=== PATIENT | male | born 1970 | race Caucasian/White ===

== ENCOUNTER 2016-08-24 03:47 | Emergency (ER) | payer MEDICARE, MEDICAID ==
[~2016-08-24 03:47] MED LIST: /MELO7TA PO; FLEX10TA2 PO; FURO40TA2 PO; LISI10TA4 PO; LORA10TA2 PO; LYRI225C PO; LYRI300C PO; LYRI75CA PO; NEUR300C PO; OMEP40CA2 PO; ROBA750T4 PO; SKEL-29 PO; SOMA350T PO; ULTR50TA PO; VICO5TAB PO
== END 2016-08-24 07:07 | disposition left against medical advice (07) ==
LOC: M ED 03:47
DX: H92.09 Otalgia, unspecified ear (principal); Z53.20 Procedure and treatment not carried out because of patient's decision for unspecified reasons

== ENCOUNTER 2016-09-28 21:39 | Emergency (ER) | payer MEDICARE, MEDICAID ==
[~2016-09-28] VITALS: Ht 180.3 cm; Wt 168.3 kg
[2016-09-28] MEDS ORDERED: LOVE1INJ SC (21:58)
[2016-09-28] MEDS ORDERED: ATEN25TA PO (21:58)
[2016-09-28] MEDS ORDERED: SPIR25TA2 PO (21:58)
[2016-09-28] MEDS ORDERED: FAMO1TAB25 PO (21:58)
[2016-09-28] MEDS ORDERED: ATOR1TAB18 PO (21:58)
[2016-09-28] MEDS ORDERED: MULTCAP11 PO (21:58)
[2016-09-28] MEDS ORDERED: B121000T PO (21:58)
[2016-09-28] MEDS ORDERED: dexameTHASONE 20 MG/5 ML VIAL (J1100) IM ONE (22:30)
[2016-09-28 23:06] VITALS: BP 127/68
== END 2016-09-28 23:14 | disposition home or self-care (01) ==
LOC: M ED 22:41
DX: K13.79 Other lesions of oral mucosa (principal); Z98.890 Other specified postprocedural states; Z88.0 Allergy status to penicillin; Z91.09 Other allergy status, other than to drugs and biological substances; Z79.899 Other long term (current) drug therapy
CPT/HCPCS: 36415; 85025; 99281; J1100

== ENCOUNTER → 2016-10-02 | Outpatient (REF) | payer MEDICARE, MEDICAID ==
[~2016-10-02] MED LIST changes: +ATEN25TA PO; +ATOR1TAB18 PO; +B121000T PO; +FAMO1TAB25 PO; +LOVE1INJ SC; +MULTCAP11 PO; +SPIR25TA2 PO
[2016-10-02 16:49] LABS: ANION GAP 8 MEQ/L (8-16); BLOOD UREA NITROGEN 16 MG/DL (7-18); CALCIUM LEVEL 8.8 MG/DL (8.5-10.1); CARBON DIOXIDE LEVEL 27 MEQ/L (21-32); CHLORIDE LEVEL 103 MEQ/L (98-107); CREATININE FOR GFR 1.15 MG/DL (0.70-1.30); GLOMERULAR FILTRATION RATE > 60.0 (>60); GLUCOSE, FASTING 100 MG/DL (70-105); POTASSIUM SERUM 4.2 MEQ/L (3.5-5.1); SODIUM LEVEL 138 MEQ/L (136-145)
== END ==
LOC: M LABDRAW1 15:45
PROVIDERS: ATTEND Family Medicine
DX: E11.9 Type 2 diabetes mellitus without complications (principal)

== ENCOUNTER → 2016-11-17 | Outpatient (REF) | payer MEDICARE, MEDICAID ==
[2016-11-17 12:29] LABS: ALBUMIN 3.7 GM/DL (3.2-5.2); ALBUMIN/GLOBULIN RATIO 1.28 (1.00-1.93); ALKALINE PHOSPHATASE 79 U/L (45-117); ALT/SGPT 67 U/L (12-78); ANION GAP 8 MEQ/L (8-16); AST/SGOT 29 U/L (15-37); BILIRUBIN,DIRECT 0.1 MG/DL (0.0-0.2); BILIRUBIN,TOTAL 0.4 MG/DL (0.2-1.0); BLOOD UREA NITROGEN 12 MG/DL (7-18); CALCIUM LEVEL 8.8 MG/DL (8.5-10.1); CARBON DIOXIDE LEVEL 28 MEQ/L (21-32); CHLORIDE LEVEL 105 MEQ/L (98-107); CHOLESTEROL LEVEL 80 MG/DL (<200); CREATININE FOR GFR 1.04 MG/DL (0.70-1.30); GLOMERULAR FILTRATION RATE > 60.0 (>60); GLUCOSE, FASTING 125 MG/DL (70-105); SODIUM LEVEL 141 MEQ/L (136-145); TOTAL PROTEIN 6.6 GM/DL (6.4-8.2); TRIGLYCERIDES LEVEL 114 MG/DL (<150)
== END ==
LOC: M LABDRAW1 11:40
PROVIDERS: ATTEND Nurse Practitioner Family
DX: I25.118 Atherosclerotic heart disease of native coronary artery with other forms of angina pectoris (principal); I10 Essential (primary) hypertension

== ENCOUNTER → 2017-01-02 | Outpatient (REF) | payer MEDICARE, MEDICAID ==
[~2017-01-02] MED LIST changes: -ATOR1TAB18 PO; +ATOR80TA59 PO; +KEFL500C17 PO; +NITR0.4S14; -SKEL-29 PO; +SKEL800T97 PO
[2017-01-20 06:28] LABS: FIBROSPECT1 SEE SEPARATE REPORT
== END ==
LOC: M LABDRAW1 12:02
PROVIDERS: ATTEND Internal Medicine Gastroenterology
DX: K75.81 Nonalcoholic steatohepatitis (NASH) (principal)

== ENCOUNTER → 2017-02-17 | Outpatient (REF) | payer MEDICARE, MEDICAID ==
[2017-02-17 15:15] LABS: BASO % 0.4 % (0.0-1.0); EOS # 0.2 K/mm3 (0.0-0.50); EOS % 2.4 % (0.0-3.0); LARGE UNSTAINED CELL # 0.1 K/mm3 (0.0-0.4); LYMPH # 2.2 K/mm3 (1.5-4.5); LYMPH % 31.3 % (24.0-44.0); MEAN CORPUSCULAR HEMOGLOBIN 30.8 pg (27.0-33.0); MEAN CORPUSCULAR HGB CONC 32.9 g/dl (32.0-36.5); MEAN CORPUSCULAR VOLUME 93.8 fl (80.0-96.0); MONO # 0.4 K/mm3 (0.0-0.8); MONO % 6.3 % (0.0-5.0); NEUTROPHILS # 3.8 K/mm3 (1.8-7.7); NEUTROPHILS % 57.5 % (36.0-66.0); PLATELET COUNT, AUTOMATED 210 k/mm3 (150-450); RED CELL DISTRIBUTION WIDTH 13.2 % (11.5-14.5); WHITE BLOOD COUNT 6.5 K/mm3 (4.0-10.0)
[2017-02-17 15:18] LABS: ALBUMIN 3.7 GM/DL (3.2-5.2); ALBUMIN/GLOBULIN RATIO 1.32 (1.00-1.93); ALKALINE PHOSPHATASE 71 U/L (45-117); ALT/SGPT 49 U/L (12-78); ANION GAP 8 MEQ/L (8-16); AST/SGOT 29 U/L (15-37); BILIRUBIN,TOTAL 0.4 MG/DL (0.2-1.0); BLOOD UREA NITROGEN 14 MG/DL (7-18); CALCIUM LEVEL 8.7 MG/DL (8.5-10.1); CARBON DIOXIDE LEVEL 27 MEQ/L (21-32); CHLORIDE LEVEL 107 MEQ/L (98-107); CREATININE FOR GFR 1.04 MG/DL (0.70-1.30); FERRITIN 37 NG/ML (26-388); GLOMERULAR FILTRATION RATE > 60.0 (>60); GLUCOSE, FASTING 91 MG/DL (70-105); MAGNESIUM LEVEL 2.3 MG/DL (1.8-2.4); PHOSPHORUS LEVEL 3.8 MG/DL (2.5-4.9); POTASSIUM SERUM 4.4 MEQ/L (3.5-5.1); SODIUM LEVEL 142 MEQ/L (136-145); TOTAL PROTEIN 6.5 GM/DL (6.4-8.2)
[2017-02-17 15:21] LABS: VITAMIN B12 LEVEL 585 PG/ML (247-911)
[2017-02-20 12:02] LABS: PRETREATED FOLATE FOR RBCFOL 12.9 NG/ML
== END ==
LOC: M LABDRAW1 11:56
PROVIDERS: ATTEND Surgery
DX: K91.2 Postsurgical malabsorption, not elsewhere classified (principal); Z98.84 Bariatric surgery status

== ENCOUNTER → 2017-02-27 | Outpatient (REF) | payer MEDICARE ==
[2017-02-27 13:12] LABS: INR 1.02
== END ==
LOC: M LABDRAW1 10:10
PROVIDERS: ATTEND Physical Medicine & Rehabilitation
DX: Z01.818 Encounter for other preprocedural examination (principal); I10 Essential (primary) hypertension

== ENCOUNTER → 2017-02-27 | Outpatient (REF) | payer MEDICARE ==
[2017-02-27 13:45] LABS: ALBUMIN 3.5 GM/DL (3.2-5.2); ANION GAP 8 MEQ/L (8-16); BLOOD UREA NITROGEN 13 MG/DL (7-18); CALCIUM LEVEL 8.7 MG/DL (8.5-10.1); CARBON DIOXIDE LEVEL 29 MEQ/L (21-32); CHLORIDE LEVEL 105 MEQ/L (98-107); CREATININE FOR GFR 0.98 MG/DL (0.70-1.30); GLOMERULAR FILTRATION RATE > 60.0 (>60); GLUCOSE, FASTING 70 MG/DL (70-105); POTASSIUM SERUM 4.6 MEQ/L (3.5-5.1); SODIUM LEVEL 142 MEQ/L (136-145)
== END ==
LOC: M LABDRAW1 13:08
PROVIDERS: ATTEND Nurse Practitioner Family
DX: Z01.818 Encounter for other preprocedural examination (principal); I10 Essential (primary) hypertension; Z98.84 Bariatric surgery status

== ENCOUNTER 2017-03-26 16:43 | Emergency (ER) | payer MEDICARE, MEDICAID ==
[~2017-03-26] VITALS: Ht 180.3 cm; Wt 140.9 kg
[~2017-03-26 16:43] MED LIST changes: -KEFL500C17 PO; -NITR0.4S14
[2017-03-26] MEDS ORDERED: NITR0.4S14 (16:52)
[2017-03-26] MEDS ORDERED: LIDOCAINE 2% MDV 20 ML VIAL As Ordered ONE (19:18)
[2017-03-26] MEDS ORDERED: LIDOCAINE 2% MDV 20 ML VIAL SC ONE (19:30)
[2017-03-26] MEDS ORDERED: ADACEL/BOOSTRIX VACCINE (DIPHTH/PERTUSS/ACELL/TETANUS)0.5ML SYR (90715) IM ONE (19:45)
[2017-03-26] MEDS ORDERED: KEFL500C17 PO (19:49)
[2017-03-26 19:57] VITALS: BP 103/64
== END 2017-03-26 20:13 | disposition home or self-care (01) ==
LOC: M ED 16:43
DX: S61.210A Laceration without foreign body of right index finger without damage to nail, initial encounter (principal); S66.120A Laceration of flexor muscle, fascia and tendon of right index finger at wrist and hand level, initial encounter; X58.XXXA Exposure to other specified factors, initial encounter; Y92.009 Unspecified place in unspecified non-institutional (private) residence as the place of occurrence of the external cause; Y93.89 Activity, other specified; Y99.8 Other external cause status; Z88.0 Allergy status to penicillin; Z91.048 Other nonmedicinal substance allergy status; Z79.899 Other long term (current) drug therapy

== ENCOUNTER → 2017-07-09 | Outpatient (CLI) | payer MEDICARE | LOC: M RAD 12:35 | DX: J34.2 Deviated nasal septum (principal) | CPT/HCPCS: 70486 ==

== ENCOUNTER → 2017-07-16 | Outpatient (REF) | payer MEDICARE | LOC: M LABDRAW1 15:37 | DX: M51.37 Other intervertebral disc degeneration, lumbosacral region (principal) | CPT/HCPCS: 80307 ==

== ENCOUNTER → 2017-09-11 | Outpatient (REF) | payer MEDICARE ==
[2017-09-11 12:55] LABS: BASO % 0.3 % (0.0-1.0); EOS # 0.1 10^3/uL (0.0-0.50); EOS % 1.8 % (0.0-3.0); HEMATOCRIT 46.1 % (42.0-52.0); HEMOGLOBIN 15.4 g/dl (14.0-18.0); IMMATURE GRANULOCYTE % 0.3 % (0-3.0); LYMPH # 2.5 10^3/uL (1.5-4.5); LYMPH % 31.4 % (24.0-44.0); MEAN CORPUSCULAR HEMOGLOBIN 30.7 pg (27.0-33.0); MEAN CORPUSCULAR HGB CONC 33.4 g/dl (32.0-36.5); MONO # 0.5 10^3/uL (0.0-0.8); MONO % 6.7 % (0.0-5.0); NEUTROPHILS # 4.7 10^3/uL (1.8-7.7); NEUTROPHILS % 59.5 % (36.0-66.0); PLATELET COUNT, AUTOMATED 228 10^3/uL (150-450); RED BLOOD COUNT 5.01 10^6/uL (4.30-6.10); RED CELL DISTRIBUTION WIDTH 12.8 % (11.5-14.5); WHITE BLOOD COUNT 7.9 10^3/uL (4.0-10.0)
[2017-09-11 13:47] LABS: ALBUMIN 3.8 GM/DL (3.2-5.2); ALBUMIN/GLOBULIN RATIO 1.36 (1.00-1.93); ALKALINE PHOSPHATASE 73 U/L (45-117); ALT/SGPT 43 U/L (12-78); ANION GAP 8 MEQ/L (8-16); AST/SGOT 21 U/L (7-37); BILIRUBIN,TOTAL 0.3 MG/DL (0.2-1.0); BLOOD UREA NITROGEN 15 MG/DL (7-18); CALCIUM LEVEL 8.8 MG/DL (8.5-10.1); CARBON DIOXIDE LEVEL 29 MEQ/L (21-32); CHLORIDE LEVEL 106 MEQ/L (98-107); CREATININE FOR GFR 1.03 MG/DL (0.70-1.30); GLOMERULAR FILTRATION RATE > 60.0 (>60); GLUCOSE, FASTING 88 MG/DL (70-100); POTASSIUM SERUM 4.6 MEQ/L (3.5-5.1); SODIUM LEVEL 143 MEQ/L (136-145); TOTAL PROTEIN 6.6 GM/DL (6.4-8.2)
== END ==
LOC: M LABDRAW1 11:27
DX: Z01.812 Encounter for preprocedural laboratory examination (principal)

== ENCOUNTER → 2017-09-11 | Outpatient (REF) | payer MEDICARE ==
[2017-09-11 12:50] LABS: BASO % 0.4 % (0.0-1.0); EOS # 0.2 10^3/uL (0.0-0.50); EOS % 2.2 % (0.0-3.0); HEMATOCRIT 45.8 % (42.0-52.0); HEMOGLOBIN 15.4 g/dl (14.0-18.0); IMMATURE GRANULOCYTE % 0.3 % (0-3.0); LYMPH # 2.3 10^3/uL (1.5-4.5); LYMPH % 29.8 % (24.0-44.0); MEAN CORPUSCULAR HEMOGLOBIN 30.9 pg (27.0-33.0); MEAN CORPUSCULAR HGB CONC 33.6 g/dl (32.0-36.5); MONO # 0.5 10^3/uL (0.0-0.8); MONO % 6.5 % (0.0-5.0); NEUTROPHILS # 4.8 10^3/uL (1.8-7.7); NEUTROPHILS % 60.8 % (36.0-66.0); PLATELET COUNT, AUTOMATED 230 10^3/uL (150-450); RED BLOOD COUNT 4.98 10^6/uL (4.30-6.10); RED CELL DISTRIBUTION WIDTH 12.9 % (11.5-14.5); WHITE BLOOD COUNT 7.8 10^3/uL (4.0-10.0)
[2017-09-11 12:52] LABS: HEMATOCRIT 45.8 % (42.0-52.0)
[2017-09-11 13:33] LABS: TOTAL 25(OH) VITAMIN D 40.5 NG/ML (30.0-100.0)
[2017-09-11 13:34] LABS: ESTIMATED AVERAGE GLUCOSE 120 MG/DL (60-110); HEMOGLOBIN A1c 5.8 %; VITAMIN B12 LEVEL 606 PG/ML (247-911)
[2017-09-11 13:48] LABS: ALBUMIN 3.7 GM/DL (3.2-5.2); ALBUMIN/GLOBULIN RATIO 1.23 (1.00-1.93); ALKALINE PHOSPHATASE 69 U/L (45-117); ALT/SGPT 43 U/L (12-78); ANION GAP 7 MEQ/L (8-16); AST/SGOT 21 U/L (7-37); BILIRUBIN,TOTAL 0.3 MG/DL (0.2-1.0); BLOOD UREA NITROGEN 15 MG/DL (7-18); CALCIUM LEVEL 8.8 MG/DL (8.5-10.1); CARBON DIOXIDE LEVEL 29 MEQ/L (21-32); CHLORIDE LEVEL 106 MEQ/L (98-107); CREATININE FOR GFR 0.99 MG/DL (0.70-1.30); FERRITIN 42 NG/ML (26-388); GLOMERULAR FILTRATION RATE > 60.0 (>60); GLUCOSE, FASTING 83 MG/DL (70-100); IRON (FE) 59 UG/DL (65-175); MAGNESIUM LEVEL 2.1 MG/DL (1.8-2.4); PERCENT SATURATION 19.4 % (19.7-50.0); PHOSPHORUS LEVEL 3.8 MG/DL (2.5-4.9); POTASSIUM SERUM 4.5 MEQ/L (3.5-5.1); SODIUM LEVEL 142 MEQ/L (136-145); TOTAL IRON BINDING CAPACITY 304 UG/DL (250-450); TOTAL PROTEIN 6.7 GM/DL (6.4-8.2)
[2017-09-15 10:54] LABS: PRETREATED FOLATE FOR RBCFOL 11.3 NG/ML; RBC FOLATE 518.1 NG/ML (280-791)
== END ==
LOC: M LABDRAW1 11:28
DX: K91.2 Postsurgical malabsorption, not elsewhere classified (principal); E55.9 Vitamin D deficiency, unspecified; Z98.84 Bariatric surgery status; Z01.812 Encounter for preprocedural laboratory examination
CPT/HCPCS: 83550

== ENCOUNTER → 2017-09-16 | Outpatient (REF) | payer MEDICARE ==
[2017-09-16 11:52] LABS: ALBUMIN 3.7 GM/DL (3.2-5.2); ANION GAP 6 MEQ/L (8-16); BLOOD UREA NITROGEN 18 MG/DL (7-18); CALCIUM LEVEL 8.7 MG/DL (8.5-10.1); CARBON DIOXIDE LEVEL 31 MEQ/L (21-32); CHLORIDE LEVEL 105 MEQ/L (98-107); CREATININE FOR GFR 1.07 MG/DL (0.70-1.30); GLOMERULAR FILTRATION RATE > 60.0 (>60); GLUCOSE, FASTING 89 MG/DL (70-100); PHOSPHORUS LEVEL 3.4 MG/DL (2.5-4.9); POTASSIUM SERUM 4.4 MEQ/L (3.5-5.1); SODIUM LEVEL 142 MEQ/L (136-145)
== END ==
LOC: M LABDRAW1 11:17
DX: I10 Essential (primary) hypertension (principal)
CPT/HCPCS: 80069

== ENCOUNTER 2017-09-25 08:07 | Day surgery (SDC) | payer MEDICARE ==
[2017-09-25] MEDS ORDERED: MIDAZOLAM INJ 2 MG/2 ML VIAL (J2250) As Ordered (10:13)
[2017-09-25] MEDS ORDERED: SUCCINYLCHOLINE 100 MG/5 ML SYRINGE (J0330) As Ordered (10:13)
[2017-09-25] MEDS ORDERED: PROPOFOL 200 MG/20 ML VIAL As Ordered (10:13)
[2017-09-25] MEDS ORDERED: LIDOCAINE 2% INJ 100 MG/5 ML SDV (FOR ANES.) As Ordered (10:13)
[2017-09-25] MEDS ORDERED: ROCURONIUM BROMIDE 50 MG/5 ML VIAL As Ordered (10:13)
[2017-09-25] MEDS ORDERED: fentaNYL 100 MCG/2 ML INJECTION (J3010) As Ordered ×2 (10:13→10:25)
[2017-09-25] MEDS: METHYLENE BLUE 0.5% (5MG/ML) 10 ML AMP (PROVAYBLUE)(Q9968 PER 1MG) As Ordered (10:16)
[2017-09-25] MEDS: SODIUM CHLORIDE 0.9% NASAL GEL 15MG (AYR) As Ordered (10:16)
[2017-09-25] MEDS: LIDOCAINE W/EPINEPHRINE 1% 20ML VIAL As Ordered (10:16)
[2017-09-25] MEDS: OXYMETAZOLINE NASAL SPRAY (AFRIN) As Ordered (10:16)
[2017-09-25] MEDS ORDERED: dexameTHASONE 4 MG/ML 1ML VIAL (J1100) As Ordered (10:18)
[2017-09-25] MEDS ORDERED: ePHEDrine SULFATE 25 MG/5 ML(5MG/ML) SYRINGE As Ordered (10:25)
[2017-09-25] MEDS ORDERED: ONDANSETRON 4MG/2ML VIAL (J2405) As Ordered (10:40)
[2017-09-25] MEDS ORDERED: METOCLOPRAMIDE INJ 10MG/2ML VIAL (J2765) IV (11:15)
[2017-09-25] MEDS ORDERED: ONDANSETRON 4MG/2ML VIAL (J2405) IV (11:15)
[2017-09-25] MEDS ORDERED: ACETAMINOPH W/CODEINE #3 TAB UD PO ×2 (11:15)
[2017-09-25] MEDS ORDERED: PERCOCET 5MG/325MG TAB PO (11:15)
[2017-09-25] MEDS ORDERED: LR 1,000 ML IV (11:15)
[2017-09-25] MEDS ORDERED: fentaNYL 100 MCG/2 ML INJECTION (J3010) IV (11:15)
== END 2017-09-25 12:33 | disposition home or self-care (01) ==
LOC: M SDC 08:07
DX: J34.2 Deviated nasal septum (principal); J34.3 Hypertrophy of nasal turbinates; J34.89 Other specified disorders of nose and nasal sinuses; I10 Essential (primary) hypertension; E78.00 Pure hypercholesterolemia, unspecified; G47.33 Obstructive sleep apnea (adult) (pediatric); I25.10 Atherosclerotic heart disease of native coronary artery without angina pectoris; M54.5 Low back pain; K21.9 Gastro-esophageal reflux disease without esophagitis; T88.59XD Other complications of anesthesia, subsequent encounter; R06.83 Snoring; E66.01 Morbid (severe) obesity due to excess calories; Z68.43 Body mass index [BMI] 50.0-59.9, adult; Z88.0 Allergy status to penicillin; Z91.048 Other nonmedicinal substance allergy status; Z79.899 Other long term (current) drug therapy; Z79.82 Long term (current) use of aspirin; Z98.84 Bariatric surgery status; Z95.5 Presence of coronary angioplasty implant and graft
CPT/HCPCS: 30520

== ENCOUNTER → 2018-06-13 | Outpatient (CLI) | payer MEDICARE | LOC: M SLEEP 20:00 | DX: G47.33 Obstructive sleep apnea (adult) (pediatric) (principal) | CPT/HCPCS: 95811 ==

== ENCOUNTER → 2018-08-11 | Outpatient (REF) | payer OTHER ==
[~2018-08-11] MED LIST changes: +AMIT25TA PO; +ASPI1TAB PO; +BLUE EMU TOP; +CALC1TAB26 PO; +DULO1CAP3 PO; +KEFL500C17 PO; +NEUR600T PO; +NITR0.4S14; +PREG100CA PO; +ROBA500T PO; +SPIR-10 PO; -SPIR25TA2 PO; +TIZA4CAP PO; +TRAM50TA2 PO
[2018-08-11 12:51] LABS: HEMOGLOBIN A1c 6.2 %
[2018-08-11 13:07] LABS: MAU/CREAT RATIO 36.7 MCG/MG (0.0-30.0)
== END ==
LOC: M LABDRAW1 10:14
PROVIDERS: ATTEND Family Medicine
DX: E11.9 Type 2 diabetes mellitus without complications (principal)

== ENCOUNTER → 2018-08-11 | Outpatient (REF) | payer OTHER ==
[2018-08-11 12:33] LABS: BASO % 0.5 % (0.0-1.0); EOS # 0.2 10^3/uL (0.0-0.50); EOS % 2.8 % (0.0-3.0); HEMATOCRIT 47.7 % (42.0-52.0); LYMPH # 2.5 10^3/uL (1.5-4.5); LYMPH % 30.4 % (24.0-44.0); MEAN CORPUSCULAR HEMOGLOBIN 31.2 pg (27.0-33.0); MEAN CORPUSCULAR HGB CONC 33.5 g/dl (32.0-36.5); MONO # 0.5 10^3/uL (0.0-0.8); MONO % 5.8 % (0.0-5.0); NEUTROPHILS # 4.9 10^3/uL (1.8-7.7); NEUTROPHILS % 60.1 % (36.0-66.0); PLATELET COUNT, AUTOMATED 267 10^3/uL (150-450); RED BLOOD COUNT 5.13 10^6/uL (4.30-6.10); WHITE BLOOD COUNT 8.1 10^3/uL (4.0-10.0)
[2018-08-11 12:40] LABS: ALBUMIN 4.1 GM/DL (3.2-5.2); ALT/SGPT 153 U/L (12-78); BILIRUBIN,TOTAL 0.3 MG/DL (0.2-1.0); BLOOD UREA NITROGEN 10 MG/DL (7-18); CALCIUM LEVEL 8.9 MG/DL (8.5-10.1); CARBON DIOXIDE LEVEL 29 MEQ/L (21-32); CHLORIDE LEVEL 103 MEQ/L (98-107); CHOLESTEROL LEVEL 109 MG/DL (<200); CHOLESTEROL RISK RATIO 2.369 (<5); CREATININE FOR GFR 1.34 MG/DL (0.70-1.30); GLOMERULAR FILTRATION RATE > 60.0 (>60); GLUCOSE, FASTING 147 MG/DL (70-100); HDL CHOLESTEROL 46 MG/DL (>40); LDL CHOLESTEROL 45 MG/DL (<100); NON-HDL-C 63 MG/DL; POTASSIUM SERUM 4.6 MEQ/L (3.5-5.1); SODIUM LEVEL 138 MEQ/L (136-145); TOTAL PROTEIN 7.1 GM/DL (6.4-8.2); TRIGLYCERIDES LEVEL 89 MG/DL (<150)
== END ==
LOC: M LABDRAW1 10:12
PROVIDERS: ATTEND Physician Assistant
DX: I25.10 Atherosclerotic heart disease of native coronary artery without angina pectoris (principal)

== ENCOUNTER 2018-09-04 01:42 | Emergency (ER) | payer OTHER ==
[~2018-09-04] VITALS: Ht 180.3 cm; Wt 320.0 kg
[2018-09-04 01:42] VITALS: BP 151/85
[~2018-09-04 01:42] MED LIST changes: -AMIT25TA PO; -BLUE EMU TOP; -CALC1TAB26 PO; -DULO1CAP3 PO; -NEUR600T PO; -ROBA500T PO; -TIZA4CAP PO; -TRAM50TA2 PO
[2018-09-04] MEDS ORDERED: DULO1CAP3 PO (02:16)
[2018-09-04] MEDS ORDERED: NEUR600T PO (02:16)
[2018-09-04] MEDS ORDERED: TIZA4CAP PO (02:16)
[2018-09-04] MEDS ORDERED: BLUE EMU TOP (02:16)
[2018-09-04] MEDS ORDERED: TRAM50TA2 PO (02:16)
[2018-09-04] MEDS ORDERED: CALC1TAB26 PO (02:16)
[2018-09-04] MEDS ORDERED: AMIT25TA PO (02:16)
[2018-09-04] MEDS ORDERED: ATOR80TA59 PO (02:16)
[2018-09-04] MEDS ORDERED: METHOCARBAMOL 1,000 MG/10 ML VIAL (J2800) IM ONE (03:45)
[2018-09-04] MEDS ORDERED: ROBA500T PO (04:16)
== END 2018-09-04 04:33 | disposition home or self-care (01) ==
LOC: M ED 01:42
DX: S39.012A Strain of muscle, fascia and tendon of lower back, initial encounter (principal); X50.1XXA Overexertion from prolonged static or awkward postures, initial encounter; Y92.89 Other specified places as the place of occurrence of the external cause; I11.9 Hypertensive heart disease without heart failure; I25.10 Atherosclerotic heart disease of native coronary artery without angina pectoris; E78.5 Hyperlipidemia, unspecified; K21.9 Gastro-esophageal reflux disease without esophagitis; M54.9 Dorsalgia, unspecified; G89.29 Other chronic pain; Z98.84 Bariatric surgery status; Z88.0 Allergy status to penicillin; Z91.048 Other nonmedicinal substance allergy status; Z79.899 Other long term (current) drug therapy; Z79.82 Long term (current) use of aspirin
CPT/HCPCS: 96372; 99282; J2800

== ENCOUNTER 2018-11-06 18:50 | Emergency (ER) | payer OTHER ==
[~2018-11-06] VITALS: Ht 180.3 cm; Wt 154.8 kg
[~2018-11-06 18:50] MED LIST changes: -/MELO7TA PO; +AMIT25TA PO; -ASPI1TAB PO; +ASPI81TA26 PO; +BLUE EMU TOP; +CALC1TAB26 PO; +DULO1CAP3 PO; +MOBI4TAB PO; +NEUR600T PO; +ROBA500T PO; +TIZA4CAP PO; +TRAM50TA2 PO
[2018-11-06] MEDS ORDERED: GABA800T4 PO (18:57)
[2018-11-06] MEDS ORDERED: ADACEL/BOOSTRIX VACCINE (DIPHTH/PERTUSS/ACELL/TETANUS)0.5ML SYR (90715) IM ONE (19:45)
[2018-11-06 20:41] VITALS: BP 132/74
--- NOTE | 2018-11-07 11:52 | REP ---
RIGHT LOWER LEG, AP AND LATERAL: AP and lateral views of the right lower leg are performed. There is no acute fracture or dislocation. No intrinsic osseous pathology is seen. The ankle mortise appears anatomic. There is mild posterior and moderate inferior calcaneal spurring. There is mild dorsal navicular spurring. There is mild spurring anteriorly of the distal end of the tibia. IMPRESSION: No acute fracture or dislocation. Electronically Signed by Robert Hobson MD 11/07/2018 12:29 P
== END 2018-11-06 20:57 | disposition home or self-care (01) ==
LOC: M ED 18:50
DX: S80.811A Abrasion, right lower leg, initial encounter (principal); S80.11XA Contusion of right lower leg, initial encounter; W10.9XXA Fall (on) (from) unspecified stairs and steps, initial encounter; Y92.099 Unspecified place in other non-institutional residence as the place of occurrence of the external cause; Y93.9 Activity, unspecified; Y99.9 Unspecified external cause status; I25.2 Old myocardial infarction; F32.9 Major depressive disorder, single episode, unspecified; Z95.5 Presence of coronary angioplasty implant and graft; Z98.84 Bariatric surgery status; Z79.82 Long term (current) use of aspirin; Z79.899 Other long term (current) drug therapy; Z88.0 Allergy status to penicillin; Z91.89 Other specified personal risk factors, not elsewhere classified

== ENCOUNTER 2021-07-06 14:33 | Emergency (ER) | payer OTHER ==
[~2021-07-06] VITALS: Ht 182.9 cm; Wt 164.2 kg
[~2021-07-06 14:33] MED LIST changes: -AMIT25TA PO; +AMIT25TA17 PO; -DULO1CAP3 PO; +DULO1CAP6 PO; +FAMO10TA50 PO; -FAMO1TAB25 PO; +GABA800T4 PO; +LISI10TA22 PO; -LISI10TA4 PO
[2021-07-06 15:26] LABS: BASO # 0.1 10^3/uL (0.0-0.2); BASO % 0.6 % (0.0-1.0); EOS # 0.2 10^3/uL (0.0-0.5); EOS % 1.9 % (0.0-3.0); HEMATOCRIT 47.8 % (42.0-52.0); HEMOGLOBIN 15.2 g/dl (13.5-17.5); LYMPH # 2.4 10^3/uL (1.5-5.0); LYMPH % 26.9 % (24.0-44.0); MEAN CORPUSCULAR HEMOGLOBIN 29.9 pg (27.0-33.0); MEAN CORPUSCULAR HGB CONC 31.8 g/dl (32.0-36.5); MEAN CORPUSCULAR VOLUME 94.1 fl (80.0-96.0); MONO # 0.9 10^3/uL (0.0-0.8); MONO % 9.4 % (2.0-8.0); NEUTROPHILS # 5.5 10^3/uL (1.5-8.5); NEUTROPHILS % 60.9 % (36.0-66.0); PLATELET COUNT, AUTOMATED 287 10^3/uL (150-450); RED BLOOD COUNT 5.08 10^6/uL (4.30-6.10)
[2021-07-06] MEDS ORDERED: NITROGLYCERIN 0.4 MG SUBL TABLET SL STA (15:39)
[2021-07-06 15:40] LABS: INR 0.95; PROTHROMBIN TIME 13.1 SECONDS (12.7-14.5)
[2021-07-06] MEDS ORDERED: ASPIRIN 81 MG CHEW TABLET PO ONE (15:40)
[2021-07-06 15:48] LABS: ALT/SGPT 43 U/L (12-78); BILIRUBIN,DIRECT 0.1 MG/DL (0.0-0.2); BILIRUBIN,TOTAL 0.1 MG/DL (0.2-1.0); LIPASE 129 U/L (73-393); TOTAL PROTEIN 7.7 GM/DL (6.4-8.2)
[2021-07-06 15:49] LABS: CK-MB VALUE MASS < 1.0 NG/ML (<3.6); CPK CREATINE PHOSPHOKINASE 79 U/L (39-308); MB/CK RELATIVE INDEX 1.27 (< OR =4)
[2021-07-06 16:52] LABS: CK-MB VALUE MASS < 1.0 NG/ML (<3.6); CPK CREATINE PHOSPHOKINASE 77 U/L (39-308)
[2021-07-06 18:26] LABS: BLOOD UREA NITROGEN 14 MG/DL (7-18); CALCIUM LEVEL 9.2 MG/DL (8.5-10.1); CARBON DIOXIDE LEVEL 28 MEQ/L (21-32); CHLORIDE LEVEL 103 MEQ/L (98-107); CREATININE FOR GFR 1.23 MG/DL (0.70-1.30); GLOMERULAR FILTRATION RATE > 60.0 (>56); GLUCOSE, FASTING 135 MG/DL (70-100); NT-PRO BNP 18 PG/ML (<125); POTASSIUM SERUM 4.4 MEQ/L (3.5-5.1); SODIUM LEVEL 138 MEQ/L (136-145)
[2021-07-06 18:30] VITALS: BP 161/89
[2021-07-06 18:39] LABS: CK-MB VALUE MASS < 1.0 NG/ML (<3.6); CPK CREATINE PHOSPHOKINASE 72 U/L (39-308); MB/CK RELATIVE INDEX 1.39 (< OR =4)
== END 2021-07-06 19:09 | disposition home or self-care (01) ==
LOC: M ED 14:33
DX: R07.89 Other chest pain (principal); I45.89 Other specified conduction disorders; I25.10 Atherosclerotic heart disease of native coronary artery without angina pectoris; I25.2 Old myocardial infarction; I10 Essential (primary) hypertension; E78.5 Hyperlipidemia, unspecified; M54.50 Low back pain, unspecified; Z95.5 Presence of coronary angioplasty implant and graft; Z98.84 Bariatric surgery status; Z82.49 Family history of ischemic heart disease and other diseases of the circulatory system; Z79.82 Long term (current) use of aspirin; Z79.899 Other long term (current) drug therapy; Z88.0 Allergy status to penicillin; Z91.89 Other specified personal risk factors, not elsewhere classified

== ENCOUNTER 2022-05-14 18:20 | Emergency (ER) | payer OTHER ==
[~2022-05-14] VITALS: Ht 180.3 cm; Wt 159.1 kg
[2022-05-14] MEDS ORDERED: CLOP75TA2 (18:35)
[2022-05-14] MEDS ORDERED: DULO30CA9 PO (18:35)
[2022-05-14] MEDS ORDERED: PERCOCET 5MG/325MG TAB PO ONE (22:25)
[2022-05-14] MEDS ORDERED: OXYCODONE/APAP 5MG/325MG(HOME DOSE PACK) PO ONE (23:50)
[2022-05-15 00:05] VITALS: BP 123/78
== END 2022-05-15 00:07 | disposition home or self-care (01) ==
LOC: M ED 18:20
DX: S73.102A Unspecified sprain of left hip, initial encounter (principal); W01.10XA Fall on same level from slipping, tripping and stumbling with subsequent striking against unspecified object, initial encounter; Y92.099 Unspecified place in other non-institutional residence as the place of occurrence of the external cause; I25.2 Old myocardial infarction; I10 Essential (primary) hypertension; E78.5 Hyperlipidemia, unspecified; K21.9 Gastro-esophageal reflux disease without esophagitis; F32.9 Major depressive disorder, single episode, unspecified; M54.9 Dorsalgia, unspecified; G47.33 Obstructive sleep apnea (adult) (pediatric); Z98.84 Bariatric surgery status; Z79.82 Long term (current) use of aspirin; Z79.899 Other long term (current) drug therapy; Z88.0 Allergy status to penicillin; Z91.89 Other specified personal risk factors, not elsewhere classified

== ENCOUNTER → 2022-06-06 | Outpatient (CLI) | payer OTHER ==
[~2022-06-06] MED LIST changes: +BUPIVACAINE HCL 0.5% 10ML VIAL ONE; +CLOP75TA2; +DOXY-444 PO; +DULO30CA9 PO; +ISOVUE-300 61% 50ML VIAL ONE; +LIDOCAINE 1% MDV 20ML VIAL ONE; +methylPREDNISolone 80MG/ML SUSP 1ML VIAL ONE
== END ==
LOC: M PLAIMG 14:48
PROVIDERS: ATTEND Orthopaedic Surgery Adult Reconstructive Orthopaedic Surgery
DX: M25.552 Pain in left hip (principal)
CPT/HCPCS: 20610; 76000; J1040; Q9967

== ENCOUNTER 2022-06-20 09:20 | Emergency (ER) | payer OTHER ==
[~2022-06-20] VITALS: Ht 180.3 cm; Wt 154.6 kg
[~2022-06-20 09:20] MED LIST changes: -BUPIVACAINE HCL 0.5% 10ML VIAL ONE; -DOXY-444 PO; -ISOVUE-300 61% 50ML VIAL ONE; -LIDOCAINE 1% MDV 20ML VIAL ONE; -methylPREDNISolone 80MG/ML SUSP 1ML VIAL ONE
[2022-06-20] MEDS ORDERED: ONDANSETRON 4MG 2ML VIAL IV ONE (09:30)
[2022-06-20] MEDS ORDERED: SODIUM CHLORIDE NASAL 0.65% SPRAY BTL (OCEAN) STA (10:08)
[2022-06-20] MEDS ORDERED: OXYMETAZOLINE 0.05% NASAL SPRAY (AFRIN) ONE (10:15)
[2022-06-20 10:36] LABS: BASO # 0.1 10^3/uL (0.0-0.2); BASO % 0.5 % (0.0-1.0); EOS # 0.2 10^3/uL (0.0-0.5); EOS % 1.8 % (0.0-3.0); HEMATOCRIT 43.9 % (42.0-52.0); HEMOGLOBIN 14.4 g/dl (13.5-17.5); LYMPH # 1.7 10^3/uL (1.5-5.0); LYMPH % 17.9 % (24.0-44.0); MEAN CORPUSCULAR HEMOGLOBIN 30.3 pg (27.0-33.0); MEAN CORPUSCULAR HGB CONC 32.8 g/dl (32.0-36.5); MEAN CORPUSCULAR VOLUME 92.2 fl (80.0-96.0); MONO # 0.7 10^3/uL (0.0-0.8); NEUTROPHILS # 6.9 10^3/uL (1.5-8.5); NEUTROPHILS % 72.4 % (36.0-66.0); PLATELET COUNT, AUTOMATED 288 10^3/uL (150-450); RED BLOOD COUNT 4.76 10^6/uL (4.30-6.10); WHITE BLOOD COUNT 9.5 10^3/uL (4.0-10.0)
[2022-06-20 10:51] LABS: INR 0.92; PARTIAL THROMBOPLASTIN TIME 26.8 SECONDS (24.8-34.2); PROTHROMBIN TIME 12.6 SECONDS (12.5-14.5)
[2022-06-20 12:23] VITALS: BP 122/87
[2022-06-20] MEDS ORDERED: DOXY-444 PO (12:28)
== END 2022-06-20 13:10 | disposition home or self-care (01) ==
LOC: M ED 09:20
DX: R04.0 Epistaxis (principal); I10 Essential (primary) hypertension; E78.5 Hyperlipidemia, unspecified; K21.9 Gastro-esophageal reflux disease without esophagitis; F32.A Depression, unspecified; M54.50 Low back pain, unspecified; Z98.84 Bariatric surgery status; Z88.0 Allergy status to penicillin; Z91.048 Other nonmedicinal substance allergy status; Z79.01 Long term (current) use of anticoagulants; Z79.82 Long term (current) use of aspirin; Z79.811 Long term (current) use of aromatase inhibitors; Z79.899 Other long term (current) drug therapy

== ENCOUNTER → 2022-09-22 | Outpatient (CLI) | payer OTHER ==
[~2022-09-22] MED LIST changes: +**SFHN** BUPIVACAINE HCL 0.5% 10ML VIAL ONE; +**SFHN** LIDOCAINE 1% MDV 20ML VIAL ONE; +DOXY-444 PO; +ISOVUE-300 61% 100ML VIAL ONE; +methylPREDNISolone 80MG/ML SUSP 1ML VIAL ONE
== END ==
LOC: M PLAIMG 12:50
PROVIDERS: ATTEND Orthopaedic Surgery Adult Reconstructive Orthopaedic Surgery
DX: M25.852 Other specified joint disorders, left hip (principal)
CPT/HCPCS: 20610; 77002; J1040; Q9967

== ENCOUNTER → 2022-12-17 | Outpatient (CLI) | payer OTHER ==
[~2022-12-17] MED LIST changes: -**SFHN** BUPIVACAINE HCL 0.5% 10ML VIAL ONE; -**SFHN** LIDOCAINE 1% MDV 20ML VIAL ONE; -ISOVUE-300 61% 100ML VIAL ONE; -methylPREDNISolone 80MG/ML SUSP 1ML VIAL ONE
== END ==
LOC: M SOG 08:16
PROVIDERS: ATTEND Orthopaedic Surgery
DX: M25.552 Pain in left hip (principal)

== ENCOUNTER → 2023-02-09 | Outpatient (CLI) | payer OTHER ==
[~2023-02-09] MED LIST changes: -AMIT25TA17 PO; +AMIT25TA19 PO
== END ==
LOC: M CARPUL 13:05
PROVIDERS: ATTEND Family Medicine
DX: R06.02 Shortness of breath (principal)

== ENCOUNTER 2024-05-19 09:40 | Day surgery (SDC) | payer OTHER, MEDICAID ==
[~2024-05-19] VITALS: Ht 180.3 cm; Wt 145.1 kg
[~2024-05-19 09:40] MED LIST changes: +CETI10CH PO; +DOXY-440 PO; -DOXY-444 PO; +FAMO1TAB11 PO; +GABA-1635 PO; -GABA800T4 PO; +LISI2.5T9 PO; +METF-838 PO; +NS 250 ML IV ONE; +PEDI1TAB15 PO; +SYNJ1TAB PO
[2024-05-19] MEDS ORDERED: propofoL 200 MG/20 ML VIAL As Ordered ONE (11:03)
[2024-05-19] MEDS ORDERED: LIDOCAINE 2% 100MG/5ML SDV (FOR ANES.) As Ordered ONE (11:03)
[2024-05-19 11:44] VITALS: TEMP 98.6
[2024-05-19 12:00] VITALS: BP 125/56; O2SAT 95
== END 2024-05-19 12:01 | disposition home or self-care (01) ==
LOC: M OPP 09:40
PROVIDERS: ATTEND Surgery
DX: R19.5 Other fecal abnormalities (principal); K64.2 Third degree hemorrhoids; K21.9 Gastro-esophageal reflux disease without esophagitis; Z98.84 Bariatric surgery status; E11.9 Type 2 diabetes mellitus without complications; I25.10 Atherosclerotic heart disease of native coronary artery without angina pectoris; I25.2 Old myocardial infarction; I10 Essential (primary) hypertension; G47.30 Sleep apnea, unspecified; Z79.899 Other long term (current) drug therapy; Z79.82 Long term (current) use of aspirin; Z95.5 Presence of coronary angioplasty implant and graft; Z88.0 Allergy status to penicillin; Z91.048 Other nonmedicinal substance allergy status; Z87.891 Personal history of nicotine dependence

== ENCOUNTER → 2024-09-23 | Outpatient (CLI) | payer OTHER, MEDICAID ==
[~2024-09-23] MED LIST changes: -NS 250 ML IV ONE
== END ==
LOC: M CARPUL 15:30
PROVIDERS: ATTEND Physician Assistant
DX: I71.20 Thoracic aortic aneurysm, without rupture, unspecified (principal); I36.1 Nonrheumatic tricuspid (valve) insufficiency

== ENCOUNTER → 2024-10-07 | Outpatient (CLI) | payer OTHER, MEDICAID | LOC: M SLEEP 20:00 | PROVIDERS: ATTEND Nurse Practitioner Adult Health | DX: G47.33 Obstructive sleep apnea (adult) (pediatric) (principal) ==

== ENCOUNTER → 2024-10-18 | Outpatient (CLI) | payer OTHER, MEDICAID ==
[~2024-10-18] MED LIST changes: +ISOVUE-370 76% 100ML VIAL As Ordered ONE
== END ==
LOC: M RAD 15:07
PROVIDERS: ATTEND Family Medicine
DX: K11.21 Acute sialoadenitis (principal)
CPT/HCPCS: 70491; Q9967